=== PATIENT | female | born 1970 ===

== ENCOUNTER 2017-09-09 15:24 | Emergency (ER) | payer BC ==
[2017-09-09 15:39] VITALS: PULSE 87; RESP 20; TEMP 98; O2SAT 100
--- NOTE | 2017-09-09 16:33 | ED PDOC ---
Upper Extremity Pain/Injury Time Seen by Provider: 09/09/17 15:41 Chief Complaint (Nursing): Upper Extremity Problem/Injury Chief Complaint (Provider): Left shoulder pain History Per: Patient History/Exam Limitations: no limitations Onset/Duration Of Symptoms: Days (2) Additional Complaint(s): Patient is a 47 y/o female with a past medical history of a left shoulder injury presenting to the emergency department for a right sided headache ongoing for two days with associated fatigue. Also complains of left arm pain since last night, reporting that after sleeping on her left arm the pain became worse. Notes that the pain is worse when moving her arm. Further notes that she has been going to therapy for her past left shoulder injury. Denies fever, trauma, weakness, paresthesia, or other complaints. PCP: Dr. Raymond Begum Past Medical History Reviewed: Historical Data, Nursing Documentation, Vital Signs Vital Signs: Last Vital Signs Temp 98 F 09/09/17 15:33 Pulse 87 09/09/17 15:33 Resp 20 09/09/17 15:33 BP 160/104 H 09/09/17 15:33 Pulse Ox 100 09/09/17 15:33 - Medical History PMH: No Chronic Diseases Other PMH: left shoulder injury - Family History Family History: States: Unknown Family Hx - Home Medications Home Medications: Ambulatory Orders Medication Instructions Recorded Naproxen [Naprosyn] 500 mg PO Q12H #20 tab 09/09/17 - Allergies Allergies/Adverse Reactions: Allergies Allergy/AdvReac Type Severity Reaction Status Date / Time No Known Allergies Allergy Verified 09/09/17 15:33 Review of Systems ROS Statement: Except As Marked, All Systems Reviewed And Found Negative Constitutional: Positive for: Weakness (fatigue). Negative for: Fever, Other ( traumatic injury) Musculoskeletal: Positive for: Shoulder Pain (left) Neurological: Positive for: Headache (right sided). Negative for: Weakness, Other (paresthesia) Physical Exam - Reviewed Nursing Documentation Reviewed: Yes Vital Signs Reviewed: Yes - Physical Exam Appears: Positive for: Well, Non-toxic, No Acute Distress Head Exam: Positive for: ATRAUMATIC, NORMAL INSPECTION, NORMOCEPHALIC Skin: Positive for: Normal Color, Warm, Dry Eye Exam: Positive for: Normal appearance, EOMI, PERRL Neck: Positive for: Normal, Supple Cardiovascular/Chest: Positive for: Regular Rate, Rhythm. Negative for: Murmur Respiratory: Positive for: Normal Breath Sounds. Negative for: Accessory Muscle Use, Respiratory Distress Extremity: Positive for: Tenderness (left shoulder, anteriorly), Other (ROM limited by pain, left shoulder). Negative for: Deformity (left shoulder) Neurologic/Psych: Positive for: Alert (and awake), Oriented (x3). Negative for : Motor/Sensory Deficits - ECG O2 Sat by Pulse Oximetry: 100 (RA) Pulse Ox Interpretation: Normal Medical Decision Making Medical Decision Makin:22 Initial Plan: Head CT scan without contrast Left shoulder x-ray Reevaluation 16:35 Left shoulder x-ray reviewed. Findings noted as follows: FINDINGS: BONES: Normal. No fracture. JOINTS: Normal. Glenohumeral and acromioclavicular joints preserved. No osteoarthritis. SOFT TISSUES: Normal. OTHER FINDINGS: None. IMPRESSION: Normal radiographs of the left shoulder. Scribe Attestation: Documented by Whitney Del Valle acting as a scribe for Jose Henley MD. Provider Scribe Attestation: All medical record entries made by the Scribe were at my direction and personally dictated by me. I have reviewed the chart and agree that the record accurately reflects my personal performance of the history, physical exam, medical decision making, and the department course for this patient. I have also personally directed, reviewed, and agree with the discharge instructions and disposition. Disposition - Clinical Impression Clinical Impression: Bursitis of shoulder - Patient ED Disposition Is Patient to be Admitted: No Counseled Patient/Family Regarding: Studies Performed, Diagnosis, Need For Followup, Rx Given - Disposition Referrals: [facility] [Outside] Disposition: Routine/Home Disposition Time: 18:27 Condition: FAIR Prescriptions: Naproxen [Naprosyn] 500 mg PO Q12H #20 tab Instructions: Shoulder Bursitis (ED) Forms: [employer] (Ukrainian)
--- NOTE | 2017-09-09 16:36 | RAD ---
PROCEDURE: Radiographs of the Left Shoulder HISTORY: pain COMPARISON: No prior. FINDINGS: BONES: Normal. No fracture. JOINTS: Normal. Glenohumeral and acromioclavicular joints preserved. No osteoarthritis. SOFT TISSUES: Normal. OTHER FINDINGS: None. IMPRESSION: Normal radiographs of the left shoulder.
--- NOTE | 2017-09-09 18:38 | CT ---
PROCEDURE: CT HEAD WITHOUT CONTRAST. HISTORY: headache COMPARISON: Images from noncontrast head CT performed 08/22/10 TECHNIQUE: Axial computed tomography images were obtained through the head/brain without intravenous contrast. Radiation dose: Total exam DLP = 757.44 mGy-cm. This CT exam was performed using one or more of the following dose reduction techniques: Automated exposure control, adjustment of the mA and/or kV according to patient size, and/or use of iterative reconstruction technique. FINDINGS: HEMORRHAGE: No intracranial hemorrhage. BRAIN: No mass effect or edema. No atrophy or chronic microvascular ischemic changes. VENTRICLES: No hydrocephalus. CALVARIUM: Unremarkable. PARANASAL SINUSES: Unremarkable as visualized. No significant inflammatory changes. MASTOID AIR CELLS: Unremarkable as visualized. No inflammatory changes. OTHER FINDINGS: None. IMPRESSION: No acute intracranial pathology identified.
[2017-09-09 18:55] VITALS: BP 135/84
== END 2017-09-09 19:21 | disposition home or self-care (01) ==
LOC: H.ER 15:24
DX: M75.52 Bursitis of left shoulder (principal)

== ENCOUNTER 2018-04-10 22:33 | Emergency (ER) | payer BC ==
[2018-04-10 22:57] VITALS: BP 127/88; PULSE 86; RESP 18; TEMP 98.3; O2SAT 99
[2018-04-10] MEDS ORDERED: Tdap Vaccine 0.5 ml Vial (10-64 yrs) IM ONE (23:08)
--- NOTE | 2018-04-10 23:10 | ED PDOC ---
HPI: Skin/Bite Injury Time Seen by Provider: 04/10/18 22:57 Chief Complaint (Nursing): Finger,Hand,&Wrist Chief Complaint (Provider): Finger Laceration History Per: Patient, Family (daughter at bedside ) History/Exam Limitations: no limitations Onset/Duration Of Symptoms: Hrs (since 1pm) Current Symptoms Are (Timing): Still Present Additional Complaint(s): Patient is a 47 year old female who presents for evaluation of a left third digit laceration. Patient reports she was cleaning at 1pm today, and a vase broke in her hands, causing the laceration. Patient tried to control bleeding at home, but failed to do so prompting her to visit an urgent care tonight who redirected her to the ED for sutures. No foreign body sensation reported. Patient took no medication prior to arrival. Patient has no other complaints at present. Patient is right hand dominant. PMD: Kel Past Medical History Reviewed: Historical Data, Nursing Documentation, Vital Signs Vital Signs: Last Vital Signs Temp 98.3 F 04/10/18 22:53 Pulse 86 04/10/18 22:53 Resp 18 04/10/18 22:53 BP 127/88 04/10/18 22:53 Pulse Ox 99 04/10/18 23:39 - Medical History PMH: No Chronic Diseases - Surgical History Other surgeries: ectopic - Family History Family History: States: Unknown Family Hx - Living Arrangements Living Arrangements: With Family - Social History Current smoker - smoking cessation education provided: No Alcohol: None Drugs: Denies - Immunization History Hx Tetanus Toxoid Vaccination: No (unknown) - Home Medications Home Medications: Ambulatory Orders Medication Instructions Recorded Naproxen [Naprosyn] 500 mg PO Q12H #20 tab 09/09/17 Bacitracin Ointment [Bacitracin] 1 applic TOP BID #1 tube 04/10/18 - Allergies Allergies/Adverse Reactions: Allergies Allergy/AdvReac Type Severity Reaction Status Date / Time No Known Allergies Allergy Verified 09/09/17 15:33 Review of Systems ROS Statement: Except As Marked, All Systems Reviewed And Found Negative Skin: Positive for: Other (laceration to left 3rd digit) Physical Exam - Reviewed Nursing Documentation Reviewed: Yes Vital Signs Reviewed: Yes - Physical Exam Appears: Positive for: Well, Non-toxic, No Acute Distress Head Exam: Positive for: NORMOCEPHALIC Skin: Positive for: Normal Color, Warm, Dry Eye Exam: Positive for: EOMI, PERRL ENT: Positive for: Other (Mucus membranes moist. Airway patent, (-) stridor. ) Neck: Positive for: Painless ROM, Supple Cardiovascular/Chest: Positive for: Regular Rate, Rhythm Respiratory: Positive for: Normal Breath Sounds Extremity: Positive for: Normal ROM (of all digits), Tenderness (to distal left 3rd digit), Capillary Refill (intact), Other (1cm u shaped laceration to distal , palmar left 3rd digit with skin flap of avulsed skin (+) active bleeding (+) distal sensation (-) ecchymosis (-) nail involvement (-) FB visualized. Tendon function tested and intact. ). Negative for: Swelling Neurologic/Psych: Positive for: Alert, Oriented (x3), Gait (steady in ED) - ECG O2 Sat by Pulse Oximetry: 99 (RA) Pulse Ox Interpretation: Normal Medical Decision Making Medical Decision Makin Clinical Impression: Finger Laceration -Adacel IM -Laceration Repair -Re-evaluation 2320 Laceration repair performed by Alfonso WADE. See procedure note. Patient tolerated procedure well. Educated on wound care. 2335 On re-evaluation, patient reports improvement of symptoms. On exam, patient remains AAOx3, in no acute distress. Neck is supple, lungs CTA, cardiac RRR, neuro exam shows no focal findings. VSS, stable for discharge. Advised suture removal in 7-10 days. Diagnostic results d/w the patient in great detail. Dx of finger laceration d/w the patient. Based on history, exam and diagnostic results plan will be for discharge and outpatient follow up. Advised to follow up with primary care physician in 1-2 days without fail for wound check, suture removal in 7-10 days. Return to the emergency room at any time for any new or worsening symptoms. Patient states she fully agrees with and understands discharge instructions. States that she agrees with the plan and disposition. Verbalized and repeated discharge instructions and plan. I have given the patient opportunity to ask any additional questions. Disposition - Clinical Impression Clinical Impression: Finger laceration - Patient ED Disposition Is Patient to be Admitted: No Counseled Patient/Family Regarding: Diagnosis, Need For Followup, Rx Given - Disposition Referrals: Raymond Begum MD [Staff Provider] - Disposition: Routine/Home Disposition Time: 23:36 Condition: STABLE Additional Instructions: FOLLOW UP WITH PMD IN 1-2 DAYS FOR WOUND CHECK. SUTURE REMOVAL IN 7-10 DAYS. RETURN TO ED WITH ANY NEW OR WORSENING SYMPTOMS. KEEP WOUND CLEAN AND DRY. CLEAN TWICE DAILY AND APPLY ANTIBIOTIC OINTMENT DIRECTED. Prescriptions: Bacitracin Ointment [Bacitracin] 1 applic TOP BID #1 tube Instructions: Wound Care, Laceration Repair With Stitches (DC), Common Finger Injuries (DC) Forms: [employer] ([employer]) Print Language: PERSIAN - POA Present On Arrival: Falls Or Trauma (CUT WITH BROKEN VASE) Procedure: Wound Repair - Time Performed Time Performed: 23:20 - Time Out Time Out: Side verified, Site verified, Patient ID confirmed, Sterile procedures obs. - Consent Obtained Consent obtained: Verbal - Performed by Performed by: Mid-level Provider (Alfonso WADE) - Indications Indication(s):: Laceration - Location Location:: Left, Volar, Distal Finger:: Middle Shape:: Curvilinear Dimensions Length cm: 1cm Depth:: Epidermis - Anesthetic Technique Anesthetic Technique: Local Local/Regional Anesthetic:: Lidocaine 1% (1.5cc) - Debris Debris:: None - Irrigated Irrigated with ml of normal saline: 250 - Complexity Complexity:: Simple (one layer) - Wound repair method Sutures:: # (3), Size (5-0), Type (Prolene), Technique (Simple interrupted) - Patient tolerated procedure Patient Tolerated Procedure:: Well (Bacitracin, Telfa, and cling bandage applied.)
[2018-04-10] MEDS ORDERED: Bacitracin 500 Units/gm Oint Foilpak UD TOP STA (23:35)
== END 2018-04-10 23:44 | disposition home or self-care (01) ==
LOC: H.ER 22:33
DX: S61.213A Laceration without foreign body of left middle finger without damage to nail, initial encounter (principal); W25.XXXA Contact with sharp glass, initial encounter; Y92.89 Other specified places as the place of occurrence of the external cause

== ENCOUNTER 2018-04-18 00:03 | Emergency (ER) | payer BC ==
--- NOTE | 2018-04-18 01:00 | ED PDOC ---
HPI: General Adult Time Seen by Provider: 04/18/18 00:56 Chief Complaint (Nursing): Abnormal Skin Integrity Chief Complaint (Provider): rash History Per: Patient (47 y/o female here with rash noted right arm after receiving tdap 1 week ago for finger laceration. Patient noted itching and pain in region of injection. Denies any fevers/chills. ) Past Medical History Reviewed: Historical Data, Nursing Documentation, Vital Signs Vital Signs: Last Vital Signs Temp 98.6 F 04/18/18 01:54 Pulse 82 04/18/18 01:54 Resp 19 04/18/18 01:54 BP 130/86 04/18/18 01:54 Pulse Ox 99 04/18/18 01:54 - Family History Family History: States: Unknown Family Hx - Immunization History Hx Tetanus Toxoid Vaccination: No (unknown) - Home Medications Home Medications: Ambulatory Orders Medication Instructions Recorded Naproxen [Naprosyn] 500 mg PO Q12H #20 tab 09/09/17 Bacitracin Ointment [Bacitracin] 1 applic TOP BID #1 tube 04/10/18 DiphenhydrAMINE [Benadryl] 1 tab PO Q6 PRN #24 cap 04/18/18 Hydrocortisone 0.5% CREAM 30 applic TOP BID #1 tube 04/18/18 [Cortizone 0.5% CREAM] predniSONE [predniSONE Tab] 3 tab PO DAILY #12 tab 04/18/18 - Allergies Allergies/Adverse Reactions: Allergies Allergy/AdvReac Type Severity Reaction Status Date / Time No Known Allergies Allergy Verified 09/09/17 15:33 Review of Systems ROS Statement: Except As Marked, All Systems Reviewed And Found Negative Physical Exam - Reviewed Nursing Documentation Reviewed: Yes Vital Signs Reviewed: Yes - Physical Exam Appears: Positive for: Well, Non-toxic, No Acute Distress Head Exam: Positive for: ATRAUMATIC, NORMAL INSPECTION, NORMOCEPHALIC Skin: Positive for: Normal Color, Warm, Rash (erythema distal to IM location.) Eye Exam: Positive for: EOMI, Normal appearance, PERRL ENT: Positive for: Normal ENT Inspection Neck: Positive for: Normal, Painless ROM Cardiovascular/Chest: Positive for: Regular Rate, Rhythm Respiratory: Positive for: CNT, Normal Breath Sounds Gastrointestinal/Abdominal: Positive for: Normal Exam, Soft Back: Positive for: Normal Inspection Extremity: Positive for: Normal ROM, Other (sutures intact. No surrounding erythema. (+) thickened blood noted.) Neurologic/Psych: Positive for: Alert, Oriented - ECG O2 Sat by Pulse Oximetry: 100 - Progress ED Course And Treament: WOUND LEFT HAND CLEANSED AND BACITRACIN OINTMENT APPLIED TO WOUND. PREDNISONE 60MG X 1 DOSE BENADRYL 50 MG X DOSE PATIENT TO RETURN IN 2 DAYS FOR REMOVAL OF SUTURES AND RE-EVALUATION OF RASH ON PROXIMAL ARM Disposition - Clinical Impression Clinical Impression: Rash and nonspecific skin eruption, Visit for wound check - Patient ED Disposition Is Patient to be Admitted: No - Disposition Disposition: Routine/Home Disposition Time: 01:49 Condition: FAIR Prescriptions: DiphenhydrAMINE [Benadryl] 1 tab PO Q6 PRN #24 cap PRN Reason: Itching / Pruritus Hydrocortisone 0.5% CREAM [Cortizone 0.5% CREAM] 30 applic TOP BID #1 tube predniSONE [predniSONE Tab] 3 tab PO DAILY #12 tab Instructions: Skin Rash (DC), Wound Care
[2018-04-18 01:55] VITALS: BP 130/86; PULSE 82; RESP 19; TEMP 98.6
[2018-04-18 03:36] VITALS: O2SAT 100
== END 2018-04-18 02:15 | disposition home or self-care (01) ==
LOC: H.ER 00:03
DX: R21 Rash and other nonspecific skin eruption (principal); Z48.01 Encounter for change or removal of surgical wound dressing

== ENCOUNTER 2018-04-20 21:56 | Emergency (ER) | payer BC ==
[2018-04-20 22:22] VITALS: BP 147/91; PULSE 89; RESP 16; TEMP 98; O2SAT 99
--- NOTE | 2018-04-20 22:25 | ED PDOC ---
HPI: Wound Care - HPI Time Seen by Provider: 04/20/18 22:25 Chief Complaint (Nursing): Suture/Staple Removal Chief Complaint (Provider): suture removal History Per: Patient Additional Complaint(s): 47-year-old right hand dominant female presents for suture removal of laceration to left hand repaired on April 10. Patient denies any pain, denies active bleeding, discharge, fever or chills. PMD: Dr. Begum Past Medical History Reviewed: Historical Data, Nursing Documentation, Vital Signs Vital Signs: Last Vital Signs Temp 98.0 F 04/20/18 22:22 Pulse 89 04/20/18 22:22 Resp 16 04/20/18 22:22 BP 147/91 H 04/20/18 22:22 Pulse Ox 99 04/20/18 22:22 - Medical History PMH: No Chronic Diseases - Family History Family History: States: No Known Family Hx - Living Arrangements Living Arrangements: With Family - Immunization History Hx Tetanus Toxoid Vaccination: Yes - Home Medications Home Medications: Ambulatory Orders Medication Instructions Recorded Naproxen [Naprosyn] 500 mg PO Q12H #20 tab 09/09/17 Bacitracin Ointment [Bacitracin] 1 applic TOP BID #1 tube 04/10/18 DiphenhydrAMINE [Benadryl] 1 tab PO Q6 PRN #24 cap 04/18/18 Hydrocortisone 0.5% CREAM 30 applic TOP BID #1 tube 04/18/18 [Cortizone 0.5% CREAM] predniSONE [predniSONE Tab] 3 tab PO DAILY #12 tab 04/18/18 - Allergies Allergies/Adverse Reactions: Allergies Allergy/AdvReac Type Severity Reaction Status Date / Time No Known Allergies Allergy Verified 09/09/17 15:33 Review of Systems ROS Statement: Except As Marked, All Systems Reviewed And Found Negative Skin: Positive for: Other (here for suture removal of laceration to left 3rd digit) Physical Exam - Reviewed Nursing Documentation Reviewed: Yes Vital Signs Reviewed: Yes - Physical Exam Appears: Positive for: Well, Non-toxic, No Acute Distress Skin: Positive for: Normal Color. Negative for: Rash Eye Exam: Positive for: Normal appearance Extremity: Positive for: Other (well healed, sutured laceration noted to left 3rd digit distally, no active drainage or bleeding, N/V intact) Neurologic/Psych: Positive for: Alert, Oriented - ECG O2 Sat by Pulse Oximetry: 99 Pulse Ox Interpretation: Normal Medical Decision Making Medical Decision Makin47 year old here for suture removal 3 sutures removed from laceration without any difficulty. Wound is well healed. Patient was given wound care instructions. Patient also complains of persistent pain to right arm where she received tetanus injection. She was given dose of Motrin in ED and advised to take Motrin 600 mg every 6 hours. Patient advised to follow-up with primary doctor. Disposition - Clinical Impression Clinical Impression: Removal of suture - Patient ED Disposition Is Patient to be Admitted: No Counseled Patient/Family Regarding: Need For Followup - Disposition Referrals: Raymond Begum MD [Staff Provider] - Disposition: Routine/Home Disposition Time: 22:40 Condition: STABLE Additional Instructions: Keep wound clean and dry. Take Motrin every 6 hours for pain. Follow-up with primary doctor in 2-3 days. Instructions: Stitches Removal Forms: [employer] (Djiboutian)
== END 2018-04-20 23:44 | disposition home or self-care (01) ==
LOC: H.ER 21:56
DX: Z48.02 Encounter for removal of sutures (principal)

== ENCOUNTER 2019-01-16 10:19 | Emergency (ER) | payer BC ==
[2019-01-16 10:25] VITALS: BMI 28.3
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
[2019-01-16] MEDS ORDERED: Oxycodone/Acetaminophen 5/325 mg Tab PO ONE (12:44)
--- NOTE | 2019-01-16 14:22 | CT ---
Date of service: 01/16/2019 PROCEDURE: CT Lumbar Spine without contrast HISTORY: low back pain, radiculopathy COMPARISON: None available. TECHNIQUE: Axial computed tomography images were obtained of the lumbar spine without the use of intravenous contrast. Coronal and sagittal reformatted images were created and reviewed. Radiation dose: Total exam DLP = 906.79 mGy-cm. This CT exam was performed using one or more of the following dose reduction techniques: Automated exposure control, adjustment of the mA and/or kV according to patient size, and/or use of iterative reconstruction technique. FINDINGS: VERTEBRAE: There is normal alignment of the lumbar vertebral bodies. There is normal lumbar lordosis. There is no acute fracture or spondylolysis. Bone mineralization is normal. There is sacralization of the L5 vertebral body on the left with degenerative osteoarthrosis in the L5-S1 transverse-alar articulation. DISCS/SPINAL CANAL/NEURAL FORAMINA: Evaluation of the conus medullaris, discs and nerve roots of cauda equina is limited on noncontrast CT examination however the spinal canal appears grossly patent. L1-2: No large disc herniation, neural foraminal narrowing or spinal canal stenosis. L2-3: Mild posterior disc bulge with superimposed left foraminal disc protrusion without central spinal canal stenosis. Mild bilateral facet arthropathy contribute to mild right and moderate left neural foraminal narrowing L3-4: Diffuse posterior disc bulge with superimposed left foraminal and far lateral disc protrusions abut the exiting left L3 nerve root. No central spinal canal stenosis. Mild bilateral facet arthropathy contribute to mild right and moderate left neural foraminal narrowing. L4-5: Diffuse posterior disc bulge without central spinal canal stenosis. Mild bilateral facet arthropathy contribute to mild neural foraminal narrowing. L5-S1: Posterior disc bulge without central spinal canal stenosis. No neural foraminal narrowing. PARASPINAL SOFT TISSUES: The paraspinous soft tissues are normal. Imaged portion of the retroperitoneum is within normal limits.. OTHER FINDINGS: None. IMPRESSION: 1. No acute fracture, spondylolysis or spondylolisthesis. 2. Sacralization of the L5 vertebral body on the left with degenerative osteoarthrosis at the transverse-alar articulation. 3. Mild multilevel degenerative disc disease without central spinal canal stenosis, worse at L3-4 with a diffuse posterior disc bulge and superimposed left foraminal and far lateral disc protrusions which abut the exiting left L3 nerve root.
[2019-01-16 16:10] VITALS: BP 133/78; PULSE 88; RESP 20; TEMP 98.5; O2SAT 99
== END 2019-01-16 15:40 | disposition home or self-care (01) ==
LOC: H.ER 10:19
DX: M54.16 Radiculopathy, lumbar region (principal); M51.16 Intervertebral disc disorders with radiculopathy, lumbar region; M54.32 Sciatica, left side
CPT/HCPCS: 72131; 81025; 96372; 99285; J1885